=== PATIENT | male | born 1995 | race African-American/Black ===

== ENCOUNTER 2019-03-07 16:57 | Emergency (ER) | payer BC, OTHER ==
--- NOTE | 2019-03-07 17:34 | EDPHYS ---
Physician Documentation [facility] Name: Jl Max III Age: 23 yrs Sex: Male : 1995 Arrival Date: 03/07/2019 Time: 17:00 Bed Waiting Private MD: ED Physician Waylon Ramey HPI: 03/07 17:31 This 23 yrs old Black Male presents to ER via Unassigned with complaints of Insect Bite.kb 17:31 The patient presents with cellulitis of the right lower quadrant. Description: kb erythematous, hot, swollen. Onset: The symptoms/episode began/occurred yesterday. Possible cause(s): spider bite. Associated signs and symptoms: Pertinent positives: erythema, swelling, Pertinent negatives: discharge, drainage, foreign body sensation, fever, headache, nausea, shortness of breath, vomiting. Modifying factors: the symptoms are alleviated by nothing, the symptoms are aggravated by nothing. Severity of symptoms: At their worst the symptoms were mild, moderate, in the emergency department the symptoms are unchanged. The patient has not experienced similar symptoms in the past. The patient has not recently seen a physician. Historical: - Allergies: 17:42 No Known Allergies; ss - Home Meds: 17:42 None [Active]; ss - PMHx: 17:42 None; ss - PSHx: 17:42 R hand; ss - Immunization history:: Adult Immunizations up to date. - Social history:: Smoking status: Patient uses tobacco products, smokes one-half pack cigarettes per day. - Ebola Screening: : Patient denies exposure to infectious person Patient denies travel to an Ebola-affected area in the 21 days before illness onset. ROS: 17:30 Constitutional: Negative for fever, chills, and weight loss, Cardiovascular: Negative kb for chest pain, palpitations, and edema, Respiratory: Negative for shortness of breath, cough, wheezing, and pleuritic chest pain, Abdomen/GI: Negative for abdominal pain, nausea, vomiting, diarrhea, and constipation, MS/Extremity: Negative for injury and deformity, Neuro: Negative for headache, weakness, numbness, tingling, and seizure. 17:30 Skin: Positive for cellulitis, erythema, swelling, of the right lower quadrant. Exam: 17:30 Constitutional: This is a well developed, well nourished patient who is awake, alert, kb and in no acute distress. Head/Face: Normocephalic, atraumatic. Chest/axilla: Normal chest wall appearance and motion. Nontender with no deformity. No lesions are appreciated. Cardiovascular: Regular rate and rhythm with a normal S1 and S2. No gallops, murmurs, or rubs. Normal PMI, no JVD. No pulse deficits. Respiratory: Lungs have equal breath sounds bilaterally, clear to auscultation and percussion. No rales, rhonchi or wheezes noted. No increased work of breathing, no retractions or nasal flaring. Abdomen/GI: Soft, non-tender, with normal bowel sounds. No distension or tympany. No guarding or rebound. No evidence of tenderness throughout. MS/ Extremity: Pulses equal, no cyanosis. Neurovascular intact. Full, normal range of motion. Neuro: Awake and alert, GCS 15, oriented to person, place, time, and situation. Cranial nerves II-XII grossly intact. Motor strength 5/5 in all extremities. Sensory grossly intact. Cerebellar exam normal. Normal gait. 17:30 Skin: cellulitis, that is mild, on the right lower quadrant. Vital Signs: 17:42 BP 136 / 92; Pulse 85; Resp 16; Temp 98.0(TE); Pulse Ox 98% on R/A; Weight 138.8 kg; ss Height 5 ft. 11 in. (180.34 cm); 17:42 Body Mass Index 42.68 (138.80 kg, 180.34 cm) ss MDM: 17:30 Data reviewed: vital signs, nurses notes. Data interpreted: Pulse oximetry: on room air kb is 98 %. Interpretation: normal. Counseling: I had a detailed discussion with the patient and/or guardian regarding: the historical points, exam findings, and any diagnostic results supporting the discharge/admit diagnosis, the need for outpatient follow up, a family practitioner, to return to the emergency department if symptoms worsen or persist or if there are any questions or concerns that arise at home. 17:34 Patient medically screened. kb Administered Medications: 17:39 Drug: Bactrim (160 mg-800 mg (DS) 1 tablet Route: PO; ss 17:43 Follow up: Response: No adverse reaction; Medication administered at discharge. ss 17:39 Drug: KeFLEX 500 mg Route: PO; ss 17:43 Follow up: Response: No adverse reaction; Medication administered at discharge. ss Disposition: 03/08 07:00 Co-signature as Attending Physician, Waylon Ramey MD I agree with the assessment and [facility] plan of care. Disposition: 03/07/19 17:34 Discharged to Home. Impression: Local infection of the skin and subcutaneous tissue, unspecified - cellulitis, RLQ. - Condition is Stable. - Discharge Instructions: Cellulitis, Adult, [id number]. - Prescriptions for Keflex 500 mg Oral Capsule - take 1 capsule by ORAL route every 8 hours for 10 days; 30 capsule. Bactrim DS 800- 160 mg Oral Tablet - take 1 tablet by ORAL route every 12 hours for 10 days; 20 tablet. - Medication Reconciliation Form, Thank You Letter, Antibiotic Education, Prescription Opioid Use form. - Follow up: Emergency Department; When: As needed; Reason: Worsening of condition. Follow up: Private Physician; When: 2 - 3 days; Reason: Recheck today's complaints, Continuance of care, Re-evaluation by your physician. Signatures: Oksana Martínez, RAHEEM-C DIRECTOR HOSPICE OPERATIONS-Waylon Hsu MD MD cha Smirch, Shelby, RN RN ss Corrections: (The following items were deleted from the chart) 03/07 17:43 17:34 03/07/2019 17:34 Discharged to Home. Impression: Local infection of the skin and ss subcutaneous tissue, unspecified - cellulitis, RLQ. Condition is Stable. Forms are Medication Reconciliation Form, Thank You Letter, Antibiotic Education, Prescription Opioid Use. Follow up: Emergency Department; When: As needed; Reason: Worsening of condition. Follow up: Private Physician; When: 2 - 3 days; Reason: Recheck today's complaints, Continuance of care, Re-evaluation by your physician. kb
--- NOTE | 2019-03-07 17:44 | ER ---
Nurse's Notes [facility] Name: Jl Max III Age: 23 yrs Sex: Male : 1995 Arrival Date: 03/07/2019 Time: 17:00 Bed Waiting Private MD: Diagnosis: Local infection of the skin and subcutaneous tissue, unspecified-cellulitis, RLQ Presentation: 03/07 17:39 Presenting complaint: Patient states: Area of redness, swelling and warmth to R lower ss quadrant, denies fever. Transition of care: patient was not received from another setting of care. Onset of symptoms is unknown. Risk Assessment: Do you want to hurt yourself or someone else? Patient reports no desire to harm self or others. Initial Sepsis Screen: Does the patient meet any 2 criteria? No. Patient's initial sepsis screen is negative. Does the patient have a suspected source of infection? No. Patient's initial sepsis screen is negative. Care prior to arrival: None. 17:39 Method Of Arrival: Ambulatory ss 17:39 Acuity: ROHAN 5 ss Historical: - Allergies: 17:42 No Known Allergies; ss - Home Meds: 17:42 None [Active]; ss - PMHx: 17:42 None; ss - PSHx: 17:42 R hand; ss - Immunization history:: Adult Immunizations up to date. - Social history:: Smoking status: Patient uses tobacco products, smokes one-half pack cigarettes per day. - Ebola Screening: : Patient denies exposure to infectious person Patient denies travel to an Ebola-affected area in the 21 days before illness onset. Vital Signs: 17:42 BP 136 / 92; Pulse 85; Resp 16; Temp 98.0(TE); Pulse Ox 98% on R/A; Weight 138.8 kg; ss Height 5 ft. 11 in. (180.34 cm); 17:42 Body Mass Index 42.68 (138.80 kg, 180.34 cm) ss ED Course: 17:00 Patient arrived in ED. as 17:30 Oksana Martínez FNP-C is PHCP. kb 17:30 Waylon Ramey MD is Attending Physician. kb 17:41 Triage completed. ss 17:42 Arm band placed on right wrist. ss 17:42 No provider procedures requiring assistance completed. Patient did not have IV access ss during this emergency room visit. Administered Medications: 17:39 Drug: Bactrim (160 mg-800 mg (DS) 1 tablet Route: PO; ss 17:43 Follow up: Response: No adverse reaction; Medication administered at discharge. ss 17:39 Drug: KeFLEX 500 mg Route: PO; ss 17:43 Follow up: Response: No adverse reaction; Medication administered at discharge. ss Outcome: 17:34 Discharge ordered by . peg 17:42 Discharged to home ambulatory, with significant other. ss 17:42 Condition: good 17:42 Discharge instructions given to patient, family, Instructed on discharge instructions, follow up and referral plans. medication usage, Demonstrated understanding of instructions, follow-up care, medications, Prescriptions given X 2. 17:43 Patient left the ED. ss Signatures: Oksana Martínez, GRETA MACIEL-Radha Herron Shelby, EVER RN ss
[2019-03-07] MEDS ORDERED: CEPHALEXIN 250 MG CAP ONE (17:49)
[2019-03-07] MEDS ORDERED: SMZ./TMP. 800/160 MG TABLET ONE (17:49)
== END 2019-03-07 17:43 | disposition home or self-care (01) ==
LOC: ER 16:57
DX: L03.311 Cellulitis of abdominal wall (principal)
CPT/HCPCS: 99283